=== PATIENT | male | born 1980 | race Caucasian/White ===

== ENCOUNTER 2018-04-20 19:00 | Emergency (ER) | payer BC ==
[~2018-04-20] VITALS: Ht 190.5 cm; Wt 113.3 kg
[2018-04-20 19:07] VITALS: TEMP 36.5; Ht 190.5 cm; Wt 113.3 kg
[2018-04-20] MEDS ORDERED: METHYLPREDNISOLONE 125 MG VIAL IV STA (19:31)
[2018-04-20] MEDS ORDERED: SODIUM CHLORIDE 0.9% 1000ML 1,000 ML IV STA (19:31)
[2018-04-20] MEDS ORDERED: SODIUM CHLORIDE 0.9% 1000ML 1,000 ML IV ONE (19:31)
[2018-04-20] MEDS ORDERED: KETOROLAC TROMETHAMINE 30 MG/ML VIAL IV STA (19:31)
--- NOTE | 2018-04-20 19:37 | EMERGENCY ROOM VISIT NOTE ---
History Report prepared by Julieta: Dmitriy Phillips Under the Supervision of: Dr. Julien Ham M.D. First contact with patient: 19:13 Chief Complaint: SORETHROAT Stated Complaint: SORE THROAT,BLISTERS IN THROAT History of Present Illness The patient is a 38 year old male who presents to the Emergency Room with complaints of illness for the past 2 weeks. The patient states that he developed a fever last week, but has not had any recently. The patient notes that he has had a constant sore throat for the past 11 days. He was seen at [facility] [place] and was placed on Penicillin. He has been taking the Penicillin for the past 7 days. The patient is having difficulty swallowing. The patient denies any shortness of breath or rash. Source of History: patient Onset: 11 days Position: throat Quality: other (sorethroat) Timing: constant Associated Symptoms: No SOB, No rash Review of Systems See HPI for pertinent positives & negatives. A total of 10 systems reviewed and were otherwise negative. Past Medical & Surgical Old medical records were reviewed. Nurse's notes were reviewed and I agree with. Patient is on Zoloft for temper issues. Family History FHx: cancer Hypertension Social History Smoking Status: Never Smoker Marital Status: Housing Status: lives with family Occupation Status: employed Current/Historical Medications Scheduled Citalopram Hydrobromide (Celexa), 20 MG PO DAILY Prednisone (Prednisone), 50 MG PO DAILY Allergies Coded Allergies: Chloral Hydrate (Unverified Allergy, Mild, I GO "[facility]", 04/07/10) Physical Exam Vital Signs Date Time Temp Pulse Resp B/P (MAP) Pulse Ox O2 Delivery O2 Flow Rate FiO2 04/20/18 21:41 78 18 115/63 96 04/20/18 20:31 80 18 104/68 96 Room Air 04/20/18 19:07 36.5 117 18 109/78 96 Room Air 04/20/18 19:07 98 Room Air Physical Exam General: Non-ill appearing young male in no acute distress. Speaking and swallowing without difficulty. HEENT: Normal cephalic atraumatic. Pupils are equal round and reactive to light. Sclera anicteric. Extraocular movements are intact. Oropharynx is pink with moist mucous membranes. There is a ulceration present to the soft palate. There appears to be a small blister to the tip of the uvula. No evidence of airway compromise. No swelling of the mouth lips or tongue. Neck: Supple with a midline trachea. No meningeal signs or stiffness, no JVD or bruits. No Stridor. Chest: Clear to auscultation bilaterally. No wheezes or rhonchi. No increased work of breathing. Heart: regular rate and rhythm. Abdomen: Soft nontender, nondistended without rebound guarding or rigidity. Extremities: No cyanosis clubbing or edema. No calf tenderness or assymetry Spine/Back. Non tender to palpation. No CVA tenderness Skin: Good turgor without rashes. Neurologic exam: Cranial nerves two through 12 are intact. Motor and sensation are intact and symmetrical throughout. Medical Decision & Procedures Laboratory Results 04/20/18 19:40 Red Blood Count 4.80, Mean Corpuscular Volume 86.5, Mean Corpuscular Hemoglobin 29.4, Mean Corpuscular Hemoglobin Concent 34.0, Mean Platelet Volume 9.7, Neutrophils (%) (Auto) 63.0, Lymphocytes (%) (Auto) 24.3, Monocytes (%) (Auto) 8.9, Eosinophils (%) (Auto) 2.4, Basophils (%) (Auto) 0.4, Neutrophils # (Auto) 8.79, Lymphocytes # (Auto) 3.39, Monocytes # (Auto) 1.24, Eosinophils # (Auto) 0.34, Basophils # (Auto) 0.06 04/20/18 19:40 Test 04/20/18 19:40 04/20/18 20:04 White Blood Count 13.96 K/uL (4.8-10.8) Red Blood Count 4.80 M/uL (4.7-6.1) Hemoglobin 14.1 g/dL (14.0-18.0) Hematocrit 41.5 % (42-52) Mean Corpuscular Volume 86.5 fL (80-100) Mean Corpuscular Hemoglobin 29.4 pg (25-34) Mean Corpuscular Hemoglobin Concent 34.0 g/dl (32-36) Platelet Count 273 K/uL (130-400) Mean Platelet Volume 9.7 fL (7.4-10.4) Neutrophils (%) (Auto) 63.0 % Lymphocytes (%) (Auto) 24.3 % Monocytes (%) (Auto) 8.9 % Eosinophils (%) (Auto) 2.4 % Basophils (%) (Auto) 0.4 % Neutrophils # (Auto) 8.79 K/uL (1.4-6.5) Lymphocytes # (Auto) 3.39 K/uL (1.2-3.4) Monocytes # (Auto) 1.24 K/uL (0.11-0.59) Eosinophils # (Auto) 0.34 K/uL (0-0.5) Basophils # (Auto) 0.06 K/uL (0-0.2) RDW Standard Deviation 43.4 fL (36.4-46.3) RDW Coefficient of Variation 13.6 % (11.5-14.5) Immature Granulocyte % (Auto) 1.0 % Immature Granulocyte # (Auto) 0.14 K/uL (0.00-0.02) Anion Gap 12.0 mmol/L (3-11) Est Creatinine Clear Calc Drug Dose 129.6 ml/min Estimated GFR () 103.9 Estimated GFR (Non- 89.6 BUN/Creatinine Ratio 19.8 (10-20) Calcium Level 9.2 mg/dl (8.5-10.1) Total Bilirubin 0.3 mg/dl (0.2-1) Direct Bilirubin < 0.1 mg/dl (0-0.2) Aspartate Amino Transf (AST/SGOT) 25 U/L (15-37) Alanine Aminotransferase (ALT/SGPT) 44 U/L (12-78) Alkaline Phosphatase 84 U/L (45-117) Total Protein 8.2 gm/dl (6.4-8.2) Albumin 4.2 gm/dl (3.4-5.0) Lipase 140 U/L (73-393) Monoscreen NEG (NEG) Laboratory studies as stated above per my review. Medications Administered Medications (Trade) Dose Ordered Sig/Dulce Route Start Time Stop Time Status Last Admin Dose Admin Sodium Chloride 1,000 ml @ 999 mls/hr Q1H1M STAT IV 04/20/18 19:31 04/20/18 20:31 DC 04/20/18 19:44 999 MLS/HR Sodium Chloride 1,000 ml @ 150 mls/hr Q6H40M ONCE IV 04/20/18 19:31 04/20/18 22:28 DC 04/20/18 19:31 150 MLS/HR Ketorolac Tromethamine (Toradol Inj) 30 mg NOW STAT IV 04/20/18 19:31 04/20/18 19:33 DC 04/20/18 19:44 30 MG Methylprednisolone Sodium Succinate (Solu-Medrol IV) 125 mg ONE STAT IV 04/20/18 19:31 04/20/18 19:34 DC 04/20/18 19:44 125 MG ED Course 1918: Past medical records reviewed. The patient was evaluated in room C6, and a complete history and physical examination were performed. 1930: Ordered Solu-Medrol 125 mg IV, Toradol 30 mg IV, Sodium Chloride 1000 ml @ 150 mls/hr IV, Sodium Chloride 1000 ml @ 999 mls/hr IV 2120: Upon reevaluation, the patient is resting in bed. I discussed the results and treatment plan with him. He verbalized agreement of the treatment plan. The patient was discharged home. Medical Decision Differentials include, but are not limited to; viral illness, strep pharyngitis , mono, dehydration, electrolyte or metabolic abnormality. This patient comes in as described above he has a sore throat. This been going on for about 10 days. He is on antibiotics. He is scheduled to see his doctor tomorrow. He looks well on exam he had a fever about a week ago but none since. His posterior oropharynx is a small ulcer/lesion on his palate and also a small blister on his tip of his uvula. the uvula itself does not appear to be significantly swollen. there is no posterior oropharyngeal swelling. he has no stridor or respiratory distress. No significant lymphadenopathy. IV access established and he was hydrated 1 L IV normal saline was given Toradol 30 mg IV and Decadron 10 mg IV. Monospot was negative. White count is mildly elevated. He has no acute electrolyte or metabolic abnormalities. Most likely this is a viral illness. I do not think it is likely an abscess or epiglottitis. he is nontoxic appearing. He will continue a burst of steroids and he is going to be seen tomorrow by his primary doctor and follow-up and should return if worsening symptoms, any new problems or concerns. Medication Reconcilliation Current Medication List: was personally reviewed by me Blood Pressure Screening Patient's blood pressure: Normal blood pressure Impression Primary Impression: Pharyngitis Scribe Attestation The scribe's documentation has been prepared under my direction and personally reviewed by me in its entirety. I confirm that the note above accurately reflects all work, treatment, procedures, and medical decision making performed by me. Departure Information Dispostion Home / Self-Care Prescriptions Prednisone (Prednisone) 50 Mg Tab 50 MG PO DAILY, #4 TAB Prov: Julien Ham M.D. 04/20/18 Referrals Quinton Panda M.D. (PCP) Forms HOME CARE DOCUMENTATION FORM, IMPORTANT VISIT INFORMATION Patient Instructions My [facility] Additional Instructions Rest. Drink plenty of fluids. Use ibuprofen 400 mg every 6 hours, take with food Use prednisone 50 mg a day for the next 4 dayssteroid Keep your appointment with your doctor tomorrow Return to the ER if: Worsening of symptoms, not tolerating fluids, fever or chills, any new problems or concerns
[2018-04-20 19:53] LABS: BASO % 0.4 %; BASO ABS # 0.06 K/uL (0-0.2); EOS % 2.4 %; EOS ABS # 0.34 K/uL (0-0.5); HEMATOCRIT 41.5 % (42-52); HEMOGLOBIN 14.1 g/dL (14.0-18.0); IG# 0.14 K/uL (0.00-0.02); LYMPH % 24.3 %; LYMPH ABS # 3.39 K/uL (1.2-3.4); MEAN CELL VOLUME 86.5 fL (80-100); MEAN CORPUSCULAR HEMOGLOBIN 29.4 pg (25-34); MEAN PLATELET VOLUME 9.7 fL (7.4-10.4); MONO % 8.9 %; MONO ABS # 1.24 K/uL (0.11-0.59); NEUT ABS # 8.79 K/uL (1.4-6.5); PLATELET COUNT 273 K/uL (130-400); RED CELL DISTRIBUTION WIDTH CV 13.6 % (11.5-14.5); RED CELL DISTRIBUTION WIDTH SD 43.4 fL (36.4-46.3); WHITE BLOOD COUNT 13.96 K/uL (4.8-10.8)
[2018-04-20 20:36] LABS: AST/SGOT 25 U/L (15-37); POTASSIUM 4.6 mmol/L (3.5-5.1)
[2018-04-20 20:39] LABS: ALBUMIN 4.2 gm/dl (3.4-5.0); ALKALINE PHOSPHATASE 84 U/L (45-117); ALT/SGPT 44 U/L (12-78); BLOOD UREA NITROGEN 21 mg/dl (7-18); CALCIUM 9.2 mg/dl (8.5-10.1); CARBON DIOXIDE 23 mmol/L (21-32); CREATININE 1.05 mg/dl (0.60-1.40); GLUCOSE 84 mg/dl (70-99); LIPASE 140 U/L (73-393); SODIUM 141 mmol/L (136-145); TOTAL PROTEIN 8.2 gm/dl (6.4-8.2)
[2018-04-20] MEDS ORDERED: CITA20TA9 PO (20:40)
[2018-04-20] MEDS ORDERED: PRED50TA PO (21:20)
[2018-04-20 21:41] VITALS: BP 115/63; PULSE 78; O2SAT 96
== END 2018-04-20 21:42 | disposition home or self-care (01) ==
LOC: C.EDB 19:01 → C.EDC 21:42
DX: J20.9 Acute bronchitis, unspecified (principal); R45.4 Irritability and anger; Z79.899 Other long term (current) drug therapy; Z88.8 Allergy status to other drugs, medicaments and biological substances